=== PATIENT | female | born 1985 | race African-American/Black ===

== ENCOUNTER 2016-09-10 13:21 | Emergency (ER) | payer SELFPAY ==
[2016-09-10 13:32] VITALS: BP 129/82; PULSE 68; TEMP 98.7; BMI 17.7
--- NOTE | 2016-09-10 15:42 | PDOC ---
History of Present Illness - General Chief Complaint: Toothache Stated Complaint: TOOTHACHE Time Seen by Provider: 09/10/16 15:24 History Source: Patient Exam Limitations: No Limitations - History of Present Illness Initial Comments: CHIEF COMPLAINT: 30 y/o afebrile female with toothache for the past 3 days. HISTORY OF PRESENT ILLNESS: The patient tried to walk in to her dentist's office today but they didn't have any appointments. She denies f/c, n/v/d, swelling to face. She has been taking motrin with little relief. Vital signs on arrival are within normal limits. REVIEW OF SYSTEMS: GENERAL/CONSTITUTIONAL: No fever/chills. No weakness. No weight change. HEAD, EYES, EARS, NOSE AND THROAT: No change in vision. No ear pain or discharge. No sore throat. +toothache. MUSCULOSKELETAL: No joint or muscle swelling or pain. No neck or back pain. SKIN: No rash or easy bruising. NEUROLOGIC: No headache, vertigo, loss of consciousness, or loss of sensation. PHYSICAL EXAM: GENERAL: The patient is awake, alert, and fully oriented, in no acute distress. She is holding the right side of her face. HEAD: Normal with no signs of trauma. ENT: Pupils equal, round and reactive to light, extraocular movements intact, sclera anicteric, conjunctiva clear. No swelling to gingiva. 2 broken teeth in the upper right side of mouth that are TTP. EXTREMITIES: Normal range of motion, no edema. NEUROLOGICAL: Normal speech, normal gait. CN II-XII grossly intact. PSYCH: Normal mood, normal affect. SKIN: Warm, dry, normal turgor, no rashes or lesions noted. Past History - Past Medical History Allergies/Adverse Reactions: Allergies Allergy/AdvReac Type Severity Reaction Status Date / Time loratadine [From Claritin] Allergy Hives Verified 05/03/12 15:48 Home Medications: Ambulatory Orders Amoxicillin - [Amoxicillin 875mg Tablet -] 875 mg PO BID #14 tab 09/10/16 Oxycodone HCl/Acetaminophen [Percocet 5-325 mg Tablet] 1 tab PO Q6H #10 tablet MDD 5 09/10/16 Asthma: Yes - Psycho/Social/Smoking Cessation Hx Anxiety: No Suicidal Ideation: No Smoking Status: Yes Smoking History: Current every day smoker Number of Cigarettes Smoked Daily: 10 Information on smoking cessation initiated: No *Physical Exam - Vital Signs Last Vital Signs Temp Pulse Resp BP Pulse Ox 98.7 F 68 18 129/82 09/10/16 13:29 09/10/16 13:29 09/10/16 13:29 09/10/16 13:29 Medical Decision Making - Medical Decision Making A/P: 30 y/o female with 2 broken teeth that are causing her pain. Plan is as follows: 1. PO amox 2. PO percocet Will discharge to home with rx for amox and percocet. Instructed her to avoid driving while taking percocet. Provided her with the address for a walk in dental clinic and strongly encouraged her to go as soon as possible. The patient verbalizes understanding of all instructions, has no further questions and is awaiting discharge. *DC/Admit/Observation/Transfer Diagnosis at time of Disposition: Tooth ache - Discharge Dispostion Disposition: HOME Condition at time of disposition: Improved - Prescriptions Prescriptions: Amoxicillin - [Amoxicillin 875mg Tablet -] 875 mg PO BID #14 tab Oxycodone HCl/Acetaminophen [Percocet 5-325 mg Tablet] 1 tab PO Q6H #10 tablet MDD 5 - Referrals Referrals: Paulo Kruger [Primary Care Provider] - - Patient Instructions Printed Discharge Instructions: DI for Tooth Decay, DI for Dental Pain Additional Instructions: Discharge Instructions: -Take Motrin for pain every 6 hours for pain/swelling -Take percocet for break through pain; may cause drowsiness -Take antibiotics as prescribed -Please see a dentist as soon as possible: urgent [facility] [address] [place] [address] Open today 4pm-9pm - Post Discharge Activity Work/School Note: Back to Work
[2016-09-10] MEDS ORDERED: AMOXICILLIN 500 MG CAPSULE (FP) PO ONE (15:48)
[2016-09-10] MEDS ORDERED: OXYCODONE/APAP 5/325MG COMBO TABLET PO ONE (15:48)
[2016-09-10] MEDS ORDERED: AMOX TR/POT CLAV 500MG/125MG TABLETS (FP) ONE (15:57)
[2016-09-10] MEDS ORDERED: OXYCODONE/APAP 5/325MG COMBO TABLET ONE (15:58)
== END 2016-09-10 16:02 | disposition home or self-care (01) ==
LOC: JERFT 13:21
DX: K08.89 Other specified disorders of teeth and supporting structures (principal)
CPT/HCPCS: 99281-25

== ENCOUNTER 2016-09-26 20:35 | Emergency (ER) | payer SELFPAY ==
[2016-09-26 20:58] VITALS: BP 126/78; PULSE 82; TEMP 98.5; BMI 17.7
== END 2016-09-26 23:00 | disposition left against medical advice (07) ==
LOC: JERFT 20:35
DX: Z53.21 Procedure and treatment not carried out due to patient leaving prior to being seen by health care provider (principal)
CPT/HCPCS: 99281-25